=== PATIENT | male | born 1935 | race Caucasian/White ===

== ENCOUNTER 2022-08-06 18:18 | Inpatient (IN) | payer MEDICARE ==
[~2022-08-06] VITALS: Ht 170.2 cm; Wt 60.3 kg
[2022-08-06] MEDS: PSYLLIUM SEED PACKET PO SCH (19:15)
[2022-08-06 19:25] LABS: HEMATOCRIT 45.7 % (36.7-47.1); MEAN CORPUSCULAR HEMOGLOBIN 29.8 uug (23.8-33.4); MEAN CORPUSCULAR VOLUME 90.5 fL (73.0-96.2); PLATELET COUNT (AUTO) 267 K/uL (152-348)
--- NOTE | 2022-08-06 19:36 | NUR ---
Endorsed to Francheska LENTZ.
[2022-08-06 19:43] LABS: CARBON DIOXIDE 28 mmol/L (21-32); CHLORIDE 102 mmol/L (98-107); CREATININE 1.1 mg/dL (0.6-1.3); GLUCOSE 75 mg/dL (74-106); POTASSIUM 3.8 mmol/L (3.5-5.1); UREA NITROGEN, BLOOD 17 mg/dL (7-18)
[2022-08-06 19:49] LABS: ALANINE AMINOTRANSFERASE 13 U/L (16-63); ALKALINE PHOSPHATASE 91 U/L (50-136); ASPARTATE AMINOTRANSFERASE 33 U/L (15-37); BILIRUBIN,DIRECT 0.2 mg/dL (0.0-0.2); BILIRUBIN,TOTAL 0.8 mg/dL (0.2-1.0); TOTAL PROTEIN, SERUM 6.9 g/dL (6.4-8.2)
[2022-08-06 19:55] LABS: ACETAMINOPHEN < 2.0 ug/mL (10-30)
[2022-08-06 19:56] LABS: *BLOOD, URINE NEGATIVE (NEGATIVE); *CLARITY,URINE CLEAR (CLEAR); *COLOR,URINE YELLOW (YELLOW); *KETONES,URINE 2+ (NEGATIVE); LEUKOCYTE ESTERASE ,URINE NEGATIVE (NEGATIVE); NITRITE, URINE NEGATIVE (NEGATIVE); PH,URINE 5.5 (5.0-8.0); UGLUCOSE NEGATIVE (NEGATIVE)
[2022-08-06 19:58] LABS: *AMPHETAMINE, URINE NEGATIVE (NEGATIVE); *CANNABINOID, URINE NEGATIVE (NEGATIVE); *COCCAINE, URINE NEGATIVE (NEGATIVE); *PHENCYCLIDINE SCREEN,URINE NEGATIVE (NEGATIVE)
[2022-08-06 20:00] LABS: *BILIRUBIN,URIN 1+ (NEGATIVE)
[2022-08-06 20:05] LABS: ETHANOL < 3 MG/DL (0-0)
--- NOTE | 2022-08-06 20:26 | NUR ---
called pharmacy 3x, for metamucil, n/a at [facility] at this time
[2022-08-06 20:52] LABS: THYROID STIMULATING HORMONE 2.165 mIU/mL (0.358-3.740)
[2022-08-06] MEDS ORDERED: BLOOD SUGAR DIAGNOSTIC 1 EACH STRIP VI ONE (23:00)
[2022-08-06] MEDS ORDERED: MAGNESIUM HYDROXIDE 30 ML LIQUID UDC PO PRN (23:00)
[2022-08-06] MEDS ORDERED: MAG HYDROX/AL HYDROX/SIMETH 30 ML LIQUID UDC PO PRN (23:00)
[2022-08-06] MEDS ORDERED: LORAZEPAM 1 MG TABLET PO PRN (23:00)
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
[2022-08-07] MEDS: ZOLPIDEM 5 MG TABLET PO PRN ×2 (00:10→22:38)
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
--- NOTE | 2022-08-07 06:00 | NUR ---
PT SLEPT FOR APPROX 4HRS THROUGH THE NIGHT. WILL CONTINUE WITH REASSURANCE AND REALITY ORIENTATIONS.
--- NOTE | 2022-08-07 06:30 | NUR ---
PATIENT IS REFUSING TO SHOWER. HE IS ALSO REFUSING PICTURES TO HIS ABRASIONS IN BOTH LOWER ANTERIOR LEGS. HE STATED, "THAT IS NOTHING. I JUST FELT DOWN AT HOME. THEY ARE HEALED". WILL CONTINUE TO MONITOR.
[2022-08-07 07:30] VITALS: BP 164/70
[2022-08-07] MEDS: ACETAMINOPHEN 325 MG TABLET PO PRN ×2 (08:35→18:11)
[2022-08-07] MEDS ORDERED: LITHIUM CARBONATE 300 MG CAPSULE PO SCH (09:00)
--- NOTE | 2022-08-07 09:55 | NUR ---
Clinical SW Note: Pt appears disruptive and verbally abusive. Pt requires constant redirection. Pt appears hyperverbal and stating delusional thoughts that do not appear to make sense. Pt constantly walks to this SW's door and enters room. Pt screams, "Listen to me!" when SW redirects pt to go speak to her in his room. SW informed nursing.
[2022-08-07] MEDS: ESCITALOPRAM OXALATE 10 MG TABLET PO SCH (10:18)
[2022-08-07] MEDS: LITHIUM CARBONATE 150 MG CAPSULE PO SCH ×4 (10:22→21:00)
[2022-08-07] MEDS: PSYLLIUM SEED PACKET PO SCH (11:03)
--- NOTE | 2022-08-07 11:23 | NUR ---
Clinical SW Note: Pt continues with disruptive and verbally abusive behavior. Pt requires constant redirection, hyperverbal and stating delusional thoughts that do not appear to make sense. Pt continues to constantly walk into this SW's office and states, "I demand help dammit!". Pt appeared quiet when this SW asked how this SW can help the pt.
--- NOTE | 2022-08-07 14:00 | NUR ---
Patient received awake sitting in bed resting comfortably.patient is easily irritable, agitated, demanding,anxious,paranoid. Patient stated he does not need to be admitted to the hospital. Patient stated " Dr. Lopez is incompetent and inept".
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
--- NOTE | 2022-08-07 15:58 | NUR ---
ALLEN Initial Discharge Note: Pt's last residence was at home with his son located at [address] [place] [address] [place] [id number]. Pt stated he is currently homeless and living out of hotels due to moving. ALLEN spoke with crisis intervention social service assistant, Heidi [phone] who stated that pt cannot return home due to being evicted. ALLEN will continue to work with the pt, family and MD to ensure a safe and proper discharge plan for the pt.
--- NOTE | 2022-08-07 15:58 | NUR ---
Clinical SW Note: Pt continues to be argumentative, yelling and stating, "I will make trouble if someone doesn't help me right now!". Pt requires constant redirection as he appears intrusive, verbally abusive and demanding.
[2022-08-07 16:00] VITALS: BP 179/91
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
[2022-08-07 20:05] VITALS: BP 159/85
[2022-08-07] MEDS: LORAZEPAM 1 MG TABLET PO PRN (21:14)
--- NOTE | 2022-08-07 21:15 | NUR ---
RECEIVED PATIENT IN THE HALLWAY. HE IS NOTED A/O X 3. HE IS DEMANDING AND EASILY IRRITABLE. HE IS GUARDED. HE IS NOTED WITH A POOR INSIGHT AND JUDGMENT TO THE REASON FOR HIS ADMISSION TO MHU. HE DENIED SI/HI/VH/AH. HE STATED, "I SHOULD NOT BE HERE. I DON'T HAVE ANY MENTAL ISSUES". PATIENT ALSO REFUSED LITHIUM 150MG PO QHS. HE HAS INFORMED OF THE IMPORTANCE TO COMPLY WITH HIS MEDICATION REGIMENT TO IMPROVED HIS SYMPTOMS YET REFUSED. PATIENT IS ASLO NOTED HYPERSEXUAL. HE TOLD THIS POWDER CORE TESTER, "COME ON, JUST GIVE ME A KISS. WOULD YOU GO OUT ON A DATE WITH ME?" PATIENT REQUIRES REALITY ORIENTATION AND REDIRECTIONS. HE WAS GIVEN ATIVAN 1MG PO PRN FOR ANXIETY. HE IS REASSURED FOR HIS SAFETY. SAFETY AND FALL PRECAUTIONS ARE IN PLACE. WILL CONTINUE TO MONITOR. HE WAS GIVEN PO FLUIDS AND SNACKS, PT V/S ARE STABLE. WILL CONTINUE TO MONITOR.
[2022-08-08 07:30] VITALS: BP 195/91
--- NOTE | 2022-08-08 08:08 | NUR ---
Nursing- Called Dr Amandeep Benitez, informed of elevated blood pressure 195/91, waiting for order
[2022-08-08] MEDS: LITHIUM CARBONATE 150 MG CAPSULE PO SCH ×2 (09:23→20:09)
[2022-08-08] MEDS: ESCITALOPRAM OXALATE 10 MG TABLET PO SCH (09:24)
[2022-08-08] MEDS: PSYLLIUM SEED PACKET PO SCH (09:24)
[2022-08-08 10:45] VITALS: BP 190/89
[2022-08-08] MEDS: LORAZEPAM 1 MG TABLET PO PRN ×2 (10:58→20:09)
[2022-08-08] MEDS: hydrALAZINE HCL 50 MG TABLET PO PRN (10:59)
--- NOTE | 2022-08-08 12:59 | NUR ---
Gps/Engineering Consultant- Needy , gets argumentative, demanding behavior , yells for his needs, discouraged from yelling .Encouraged to attend group activity . Patient insisting the needs to talked to his Medical Doctor, patient reassured , relayed message
--- NOTE | 2022-08-08 14:22 | NUR ---
Gps/Director Of Partner Marketing B/P 170/67 HR 81 02 SAT.95%
--- NOTE | 2022-08-08 14:45 | NUR ---
Gps/Manager Test- During patient's shower, noted open wounds right gomez, as well left gomez, dry, flaky, discolored . Molding Machine Operator was informed, Wound consult was ordered. Patient hesitant in having picture taken of his shins but agreed after persuasion.
[2022-08-08 16:00] VITALS: BP 127/64
--- NOTE | 2022-08-08 16:15 | NUR ---
Gps/Employee Benefits Specialist- Patient's daughter Cristina , came in to fruit or nut picker car rodarte([employer]) . Patient ok'd to give his car rodarte to his daughter .Cristina initialed belonging list.
[2022-08-08 20:59] VITALS: BP 137/78
[2022-08-08] MEDS: ZOLPIDEM 5 MG TABLET PO PRN (21:07)
--- NOTE | 2022-08-09 01:59 | NUR ---
Received patient at the start of the shift with his feet up on the table where everyone eats. The patient was demanding and childlike. When he did not get something he wanted right away , he yelled at this race and sports book writer " Your a Bitch, you have no idea who I am ". The patient has been labile all night. He lays in his bed and yells at the top of his lungs " Nurse, nurse ". over and over. When staff shows up, the patient had no reason for yelling. Total disregard for the other patients and the unit rules. The patient denies SI, and is unable to engage in any conversation that is reality based or not delusional and accusatory. Safety Stratiges are in place. Staff is continuing to monitor the patient for further behavior escalation.
[2022-08-09 07:41] VITALS: BP 183/93
[2022-08-09] MEDS: hydrALAZINE HCL 50 MG TABLET PO PRN (08:00)
[2022-08-09] MEDS: LITHIUM CARBONATE 150 MG CAPSULE PO SCH ×2 (09:00→20:01)
[2022-08-09] MEDS: ESCITALOPRAM OXALATE 10 MG TABLET PO SCH (09:00)
--- NOTE | 2022-08-09 09:20 | NUR ---
Gps/Director Of Public Safety Patient extremely labile, yelling at the staff, calling the senior copywriter adore gaitan, " you dont know anything you dont fit to be a Nurse" patient requesting to see a Medical Doctor to attend to him not a Psychiatrist per patient, claimed he he does not need one. Claimed constipated for 5 days, patient had MOM 30 ml, this am, fluid encouraged, offered prune juice, refused. offered his am routine metamucil, refused. , patient constantly yelling demanding to see a Medical Doctor . Dr Amandeep Benitez was called(texted) awaiting response.
[2022-08-09] MEDS: PSYLLIUM SEED PACKET PO SCH ×3 (09:30→20:01)
--- NOTE | 2022-08-09 10:10 | NUR ---
Gps/Nursing - Order received from Corinne Salazar enema PRN constipation
--- NOTE | 2022-08-09 10:30 | NUR ---
Gps/China Decorator- Received orders from Dr Amandeep Benitez , medications for patient's constipation
[2022-08-09] MEDS ORDERED: FLEET ENEMA 133 ML BOTTLE RC PRN ×2 (10:45)
[2022-08-09] MEDS ORDERED: BISACODYL 10 MG SUPP.RECT RC PRN (10:45)
[2022-08-09] MEDS ORDERED: LACTULOSE 20 G/30 ML LIQUID UDC PO PRN (10:45)
--- NOTE | 2022-08-09 10:59 | NUR ---
Gps/Yarn Texturing Machine Operator- Came out of his room ,to the Nurses station after yelling so long, demanding his needs be taken care right away . Informed patient orders was entered, waiting fro pharmacy to acknowledge meds. Remains irritable , loud, calling staff names , difficulty redirecting patient
--- NOTE | 2022-08-09 14:08 | NUR ---
Gps/Nursing - Patient constantly yelling "Nurse, Nurse for his simple needs , encouraged to come out to the Nurses station, to tell staff his needs, patient claimed he cants walk r/t back pain, wants staff to cover him with couple of blankets , claimed he is constantly cold , temp. adjusted
--- NOTE | 2022-08-09 14:55 | NUR ---
Gps/Filling Hauler Weaving- Patient had adequate results from the fleets enema, given while he was in bed. Also noted patient had a mod soft bm. in the bathroom w/c patient didnt flush , patient wants to be assisted in cleaning him and doing his hygiene, encouraged to initiate helping himself. Patient wnats to be taking care of including tucking himp in bed as well ahelping him pulll up his blanker.Poor initiations. Remains to call staff names when neds not met right away.
[2022-08-09 16:05] VITALS: BP 154/74
[2022-08-09] MEDS: ACETAMINOPHEN 325 MG TABLET PO PRN (18:02)
[2022-08-09] MEDS: LORAZEPAM 1 MG TABLET PO PRN (20:01)
[2022-08-09 20:21] VITALS: BP 142/69
[2022-08-09] MEDS: ZOLPIDEM 5 MG TABLET PO PRN (22:16)
--- NOTE | 2022-08-10 04:32 | NUR ---
Patient was demanding, impatient, needy and rude. Again ,yelling out for the nurse multiple times during the shift. The patient has no regard for the other sleeping patients and despite attempts to educate and inform him of the unit expectations, no positive response received. The patient continues to complain about the staff, and is unable to be satisfied by anything r/t care that is or has been done. The patient shows signs of forgetfulness and appears to be hard of hearing. Safety stratiges remain in place and further monitoring for behavior escalation is ongoing.
[2022-08-10 08:18] VITALS: BP 189/81
[2022-08-10] MEDS: PSYLLIUM SEED PACKET PO SCH ×2 (08:31→20:03)
[2022-08-10] MEDS: ESCITALOPRAM OXALATE 10 MG TABLET PO SCH (08:31)
[2022-08-10] MEDS: LITHIUM CARBONATE 150 MG CAPSULE PO SCH ×2 (08:31→20:03)
--- NOTE | 2022-08-10 13:45 | NUR ---
Gps/Cotton Seed Culler- KWIGILLINGOK, words repeated so many times before he can grasp conversations /instructions. Encouraged to assist self with his ADLs, patient portrayed unable to help self including fixing his blankets. Patient's daughter Cristina called checking on his father (patient) claimed she is very happy that the hold was extended , does not want to talk to him at this time .. Cristina (Daughter ) [phone] , claimed she can be reach with this number anytime.
[2022-08-10 16:13] VITALS: BP 136/89
[2022-08-10 19:49] VITALS: BP 132/82
[2022-08-10] MEDS: LORAZEPAM 1 MG TABLET PO PRN (19:49)
[2022-08-10] MEDS: ZOLPIDEM 5 MG TABLET PO PRN (22:23)
[2022-08-10] MEDS: ACETAMINOPHEN 325 MG TABLET PO PRN (22:23)
--- NOTE | 2022-08-11 03:03 | NUR ---
At start of the shift , during the report, this patient was standing in the doorway of the nursing station, yelling and demanding " I want my Metamucil right now ! Come on, why are you torturing me . My rectum needs it ! " The patient continues to demonstrate poor impulse control, poor situational awareness , anger issues and self centered actions. He then yelled from his bed " Nurse, Nurse" ..non stop, in a frantic tone until somebody showed up.Upon staffs arrival, he said " Scratch my foot, then move the pillow under my head and cover me with my blankets." This patient is labile and he becomes verbally abusive, gritting his teeth and displaying clear signs of aggression. Safety Stratiges in place for the staff, the patient and the other people on the unit. Continuing to set limits, and to deescalate this patient as needed.
[2022-08-11 07:49] VITALS: BP 184/84
[2022-08-11] MEDS: hydrALAZINE HCL 50 MG TABLET PO PRN ×2 (07:51→20:36)
--- NOTE | 2022-08-11 08:32 | NUR ---
Clinical SW Note: Pt appears yelling from his room. Pt is stating statements that do not appear to make sense. Pt appears argumentative and verbally abusive. Pt constantly yelling and requires redirection. Pt rushes into this SW's office and requires to be constantly told to speak outside of the office.
[2022-08-11] MEDS: ESCITALOPRAM OXALATE 10 MG TABLET PO SCH (08:38)
[2022-08-11] MEDS: LORAZEPAM 1 MG TABLET PO PRN ×2 (08:38→17:17)
[2022-08-11] MEDS: LITHIUM CARBONATE 300 MG CAPSULE PO SCH ×2 (08:39→20:36)
[2022-08-11] MEDS: PSYLLIUM SEED PACKET PO SCH ×2 (08:39→20:36)
[2022-08-11] MEDS ORDERED: LITHIUM CARBONATE 150 MG CAPSULE PO SCH (09:00)
--- NOTE | 2022-08-11 10:34 | NUR ---
ALLEN Family Contact: ALLEN spoke with pt's daughter, Jessy ([phone]) regarding pt's discharge plan to a residential facility. Per Jessy, she asked for help to make sure pt can go to a facility because pt does not have a home to discharge to and he cannot take care of himself. ALLEN informed Jessy that the psychiatrist and this SW are working on a residential facility right now and will confirm with Jessy once we have a confirmed location in place. ALLEN informed Jessy that the pt is as also agreeable to a facility and asked this tech writer and Dr. Lopez for help. Jessy was grateful for the update.
--- NOTE | 2022-08-11 11:08 | NUR ---
ALLEN SNF Referral: ALLEN faxed patient's referral packet including: History and Physical, Consultation, Progress Notes, Medication List and Labs to the following facilities for review and possible care home placement: [facility] [address] [place] [id number] ([phone]). ALLEN spoke with Veronica parker and [facility]. ALLEN informed pt and his daughter, Jessy whoa re aware and agreeable with the facility location.
--- NOTE | 2022-08-11 11:24 | NUR ---
Clinical SW Note: Pt constantly rushes into this SW's office yelling and stating delusional thoughts. Pt does not appear to follow directions well when SW states to speak outside of her office. Pt appears argumentative, intrusive, and stating verbal threats such as, "You have five seconds to help me or else!".
--- NOTE | 2022-08-11 12:40 | NUR ---
WOUND CARE CONSULT: PT ANGRY AND IRRITABLE, RAISING HIS VOICE AT TIMES CONDESCENDINGLY. PT PRESENTS WITH RT LOWER LEG CRUSTED LESION/WOUND. DR LIM CALLED FOR DPM CONSULT. IN AGREEMENT WITH PLAN OF CARE.
--- NOTE | 2022-08-11 13:53 | NUR ---
GPS: Nursing Notes: Destructive Behavior To Self: Patient is awake and responding to his name, poor impulse control, poor anger management, labile, unpredictable behavior, overly demanding, verbal abusive and threatening staff, attention seeking behavior,constantly calling for a nurse, stating "Nurse can you fix my pillow..", self care, ambulatory, but needy, stated "I need a sitter next to me..", unable to formulate a viable plan for self care, grandiose behavior, stated "I am a doctor... 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
--- NOTE | 2022-08-11 14:06 | NUR ---
ALLEN Discharge update: ALLEN spoke with [facility] at [facility] who stated they cannot accept the pt due to hx of suicidal ideation. [facility] faxed clinicals to [facility] in [place] for review. Pt and pt's daughter, Jessy ([phone]) and psychiatrist, Dr. Lopez are aware.
[2022-08-11] MEDS: ACETAMINOPHEN 325 MG TABLET PO PRN (17:17)
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
[2022-08-11] MEDS: NEOMY/BACITRAC/POLYMI OINT 28.35 GM TUBE TOP SCH (17:18)
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
[2022-08-11] MEDS ORDERED: LORAZEPAM 2 MG/1 ML VIAL IM ONE (17:30)
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
[2022-08-11 20:08] VITALS: BP 163/65
--- NOTE | 2022-08-11 20:45 | NUR ---
RECEIVED PATIENT IN HIS ROOM. HE IS NOTED A/O X 3. HE IS INTRUSIVE, HYPERVERBAL, GRANDIOSE, HYPERSEXUAL AND ATTENTION SEEKER. PATIENT NEEDS REDIRECTIONS. HIS B/P WAS ELEVATED SBP 163MMHG. APRESOLINE 50MG PO PRN WAS GIVEN. PATIENT IN NO DISTRESS. HE WAS GIVEN PO FLUIDS ANS SNACKS. HE IS COMPLIANT WITH HIS MEDICATION REGIMENT, HE IS REASSURED FOR HIS SAFETY, SAFETY AND FALL PRECAUTIONS ARE IN PLACE. WILL CONTINUE TO MONITOR.
[2022-08-11 22:00] VITALS: BP 146/64
--- NOTE | 2022-08-11 22:00 | NUR ---
BP IS NOW 146/64. PATIENT RESTING IN HIS BED. WILL CONTINUE TO MONITOR.
[2022-08-12 07:26] VITALS: BP 171/75
[2022-08-12] MEDS: LORAZEPAM 1 MG TABLET PO PRN ×2 (07:48→20:06)
[2022-08-12] MEDS: ACETAMINOPHEN 325 MG TABLET PO PRN (07:49)
[2022-08-12] MEDS: hydrALAZINE HCL 50 MG TABLET PO PRN (07:49)
[2022-08-12] MEDS: ESCITALOPRAM OXALATE 10 MG TABLET PO SCH (08:03)
[2022-08-12] MEDS: PSYLLIUM SEED PACKET PO SCH ×2 (08:03→20:15)
[2022-08-12] MEDS: LITHIUM CARBONATE 300 MG CAPSULE PO SCH ×2 (08:03→20:15)
[2022-08-12] MEDS: NEOMY/BACITRAC/POLYMI OINT 28.35 GM TUBE TOP SCH (08:04)
--- NOTE | 2022-08-12 12:00 | NUR ---
Clinical SW Note: Pt does not appear to follow directions well. Pt remains argumentative, intrusive and verbally abusive.
[2022-08-12] MEDS: MIRALAX 17 GM POWD.PACK PO SCH (15:01)
[2022-08-12] MEDS: AMLODIPINE 5 MG TABLET PO SCH (15:01)
[2022-08-12 15:56] VITALS: BP 150/65
[2022-08-12] MEDS ORDERED: MAGNESIUM HYDROXIDE 30 ML LIQUID UDC PO PRN (16:45)
[2022-08-12 20:54] VITALS: BP 158/79
[2022-08-12] MEDS: ZOLPIDEM 5 MG TABLET PO PRN (21:06)
--- NOTE | 2022-08-12 21:30 | NUR ---
RECEIVED PATIENT IN HIS ROOM SITTING IN HIS BED. HE IS NOTED A/O X 3. HE IS VERBALLY ABUSIVE, HYPERVERBAL, GRANDIOSE, HYPERSEXUAL, LABILE AND ATTENTION SEEKER. HE HAS POOR INSIGHT AND POOR JUDGMENT TO THE REASON FOR HIS ADMISSION TO MHU. PATIENT IN NO DISTRESS, V/S STABLE. HE WAS GIVEN PO FLUIDS AND SNACKS. HE IS COMPLIANT WITH HIS MEDICATION REGIMENT, HE IS REASSURED FOR HIS SAFETY, SAFETY AND FALL PRECAUTIONS ARE IN PLACE. WILL CONTINUE TO MONITOR.
[2022-08-13] MEDS: ACETAMINOPHEN 325 MG TABLET PO PRN (03:23)
[2022-08-13 07:30] VITALS: BP 181/74
--- NOTE | 2022-08-13 08:18 | NUR ---
Clinical SW Note: Pt does not appear to follow directions well. Pt remains argumentative, intrusive and verbally abusive with staff.
[2022-08-13] MEDS: ESCITALOPRAM OXALATE 10 MG TABLET PO SCH (08:27)
[2022-08-13] MEDS: AMLODIPINE 5 MG TABLET PO SCH ×2 (08:30→20:47)
[2022-08-13] MEDS: MIRALAX 17 GM POWD.PACK PO SCH (08:34)
[2022-08-13] MEDS: PSYLLIUM SEED PACKET PO SCH ×2 (08:34→20:48)
[2022-08-13] MEDS: LITHIUM CARBONATE 300 MG CAPSULE PO SCH ×2 (08:34→20:47)
[2022-08-13] MEDS: NEOMY/BACITRAC/POLYMI OINT 28.35 GM TUBE TOP SCH (08:36)
--- NOTE | 2022-08-13 08:56 | NUR ---
Received patient awake in his room. A/O X 3 to person, place, environment. Patient is demanding, needy, dramatic, loud, anxious and agitated at times. Patient presents grandiose delusional. Patient states "You're a dumbed bitch. You're not even a doctor like me. I'm a surgeon". "All staff here are stupid, including doctors". Patient has poor impulse control and yells at staff to be served the way he thinks he deserves. Reality orientation provided. Fall and safety precautions implemented.
[2022-08-13 09:00] VITALS: BP 145/72
[2022-08-13] MEDS: hydrALAZINE HCL 50 MG TABLET PO PRN (15:33)
--- NOTE | 2022-08-13 15:36 | NUR ---
Patient blood pressure is 166/69, pulse 61, Hydralazine 50 mg PRN given at 15:33, will be monitored for effectiveness.
[2022-08-13 16:00] VITALS: BP 166/69
[2022-08-13] MEDS: ZOLPIDEM 5 MG TABLET PO PRN (21:11)
[2022-08-13 21:15] VITALS: BP 120/67
--- NOTE | 2022-08-14 04:09 | NUR ---
GPS NOTES: Patient is heard to be yelling at all times when needing attention, he is attended to in timely manner, however he is forgetful and accusatory with the staff. He is needy, demanding and attention seeker. Patient needs setting limits for the behavior. He is manipulative and paranoid. He is med compliant. Ambien given. Effective. He slept uninterrupted during shift. No distress. Frequent monitoring in placed. Safety precaution at all times.
[2022-08-14 07:30] VITALS: BP 164/71
[2022-08-14] MEDS: PSYLLIUM SEED PACKET PO SCH ×3 (09:00→21:13)
[2022-08-14] MEDS: MIRALAX 17 GM POWD.PACK PO SCH ×2 (09:00→09:18)
[2022-08-14] MEDS: LITHIUM CARBONATE 300 MG CAPSULE PO SCH ×2 (09:16→21:13)
[2022-08-14] MEDS: ESCITALOPRAM OXALATE 10 MG TABLET PO SCH (09:16)
[2022-08-14] MEDS: AMLODIPINE 5 MG TABLET PO SCH ×2 (09:17→21:12)
[2022-08-14] MEDS: NEOMY/BACITRAC/POLYMI OINT 28.35 GM TUBE TOP SCH (09:18)
--- NOTE | 2022-08-14 14:26 | NUR ---
ALLEN Family Contact: ALLEN spoke with pt's daughter, Jessy ([phone]) regarding pt's discharge plan to a senior living facility. Jessy is aware that the hospital cannot force to the pt to discharge to a senior living facility if the pt is alert and oriented x4 and has a safe discharge plan. Jessy is aware and agreeable that pt may discharge to a hotel with continuation of care follow-up appointments arranged by this policy writer sales upon discharge. ALLEN informed Jessy that psychiatrist, Dr. Lopez has approved pt's initial plan of discharging to a hotel as pt is self-responsible, not a danger to others or to himself if pt refuses a SNF at time of discharge. Pt and Jessy is aware that pt is accepted to [facility] upon discharge.
--- NOTE | 2022-08-14 15:15 | NUR ---
Received patient awake in his room. Patient is ambulatory A/O X 3 . Patient is demanding, needy, anxious and agitated at times. Patient presents grandiose delusional. Patient has poor impulse control and yells at staff to come to his room every time he needs to use the phone or wants water. Reality orientation provided. Fall and safety precautions implemented.Continue to monitor for safety, continue with treatment plan .
--- NOTE | 2022-08-14 15:22 | NUR ---
Patient had court hearing today, and building equipment inspector Fermin Steele gave 14 DAY HOLD probable cause for GD only.
[2022-08-14 16:00] VITALS: BP 152/66
[2022-08-14 20:13] VITALS: BP 158/78
[2022-08-14] MEDS: LORAZEPAM 1 MG TABLET PO PRN (21:11)
[2022-08-14] MEDS: ZOLPIDEM 5 MG TABLET PO PRN (21:13)
--- NOTE | 2022-08-15 04:51 | NUR ---
Received patient at the start of the shift, again yelling " Nurse,Nurse bring me the phone. " Total lack of awareness or social norms. The patients is labile and snaps at staff easily. During the night, the patient came to the nurses station and was making inappropriate comments to this newspaper writer. The patient seems more confused and forgetful at night. Safety Stratiges are in place and on going monitoring for behavior escalation and disruptive, argumentative displays of poor impulse control.
[2022-08-15 07:30] VITALS: BP 159/62
[2022-08-15 08:05] LABS: CREATININE 1.1 mg/dL (0.6-1.3); MAGNESIUM 2.4 mg/dL (1.8-2.4); POTASSIUM 4.1 mmol/L (3.5-5.1)
[2022-08-15] MEDS: LITHIUM CARBONATE 300 MG CAPSULE PO SCH ×2 (08:40→20:43)
[2022-08-15] MEDS: ESCITALOPRAM OXALATE 10 MG TABLET PO SCH (08:40)
[2022-08-15] MEDS: AMLODIPINE 5 MG TABLET PO SCH ×2 (08:41→20:44)
[2022-08-15] MEDS: MIRALAX 17 GM POWD.PACK PO SCH (08:42)
[2022-08-15] MEDS: PSYLLIUM SEED PACKET PO SCH ×2 (08:42→20:44)
[2022-08-15] MEDS: NEOMY/BACITRAC/POLYMI OINT 28.35 GM TUBE TOP SCH (08:42)
--- NOTE | 2022-08-15 09:25 | NUR ---
SW Family Contact: SW spoke with pt's daughter, Jessy ([phone]) regarding pt's discharge plan next week and was not able to be connected.
--- NOTE | 2022-08-15 15:51 | NUR ---
Patient is confused and disoriented at times, demanding, needy, verbally abusive, frequent outbursts, compliant with medications. Patient requires minimal assistance with ADL, continent, ambulates with assistance. Active listening provided. Fall and safety precautions implemented.
[2022-08-15 16:00] VITALS: BP 172/54
[2022-08-15 20:08] VITALS: BP 151/70
[2022-08-15] MEDS: OLANZAPINE 2.5 MG TABLET PO SCH (20:44)
[2022-08-15] MEDS: ZOLPIDEM 5 MG TABLET PO PRN (20:44)
--- NOTE | 2022-08-16 04:29 | NUR ---
GPS NOTES: Received patient in his room, screaming for attention. He is easily angered and yells at staff when his way of doing things are not followed. Patient verbally abusive by calling staff derogatory names such as "BITCH, STUPID". Patient needs setting limit w/ the behavior, he listens at times but forgetful and will yell constantly to make simple demands. His needs were attended to but still accusatory of staff. He denies SI/AH/VH. He is med compliant. Ambien given. Insomnia corrected. He slept mostly during shift. No distress noted. All safety strategies in placed.
[2022-08-16 07:55] VITALS: BP 144/62
[2022-08-16] MEDS: LITHIUM CARBONATE 300 MG CAPSULE PO SCH ×2 (08:25→20:36)
[2022-08-16] MEDS: AMLODIPINE 5 MG TABLET PO SCH ×2 (08:26→20:36)
[2022-08-16] MEDS: ESCITALOPRAM OXALATE 10 MG TABLET PO SCH (08:26)
[2022-08-16] MEDS: PSYLLIUM SEED PACKET PO SCH ×2 (08:28→20:37)
[2022-08-16] MEDS: MIRALAX 17 GM POWD.PACK PO SCH (08:29)
[2022-08-16] MEDS: NEOMY/BACITRAC/POLYMI OINT 28.35 GM TUBE TOP SCH (08:29)
[2022-08-16 16:18] VITALS: BP 148/67
--- NOTE | 2022-08-16 16:50 | NUR ---
Received pt awake in room yelling for nurse and demanding attention. Pt is A/O X3.Pt is forgetful at times .Pt is verbally abusive by calling staff derogatory names such as "DUMB BITCH'. Pt has poor impulse Control,irritable and gets easily agitated Pt denies SI/VH/AH.continue to Monitor for safety, continue withe treatment care.
[2022-08-16 20:00] VITALS: BP 129/52
[2022-08-16] MEDS: OLANZAPINE 2.5 MG TABLET PO SCH (20:36)
[2022-08-16] MEDS: ZOLPIDEM 5 MG TABLET PO PRN (20:37)
--- NOTE | 2022-08-17 06:39 | NUR ---
GPS NOTES: No noted behavioral improvement noted, continues to have yelling episodes, verbally abusive and no regard for peoples feelings. Ambien given. Effective. All safety strategies in placed.
[2022-08-17 08:12] VITALS: BP 145/62
[2022-08-17] MEDS: ESCITALOPRAM OXALATE 10 MG TABLET PO SCH (08:23)
[2022-08-17] MEDS: LITHIUM CARBONATE 300 MG CAPSULE PO SCH ×2 (08:23→20:46)
[2022-08-17] MEDS: MIRALAX 17 GM POWD.PACK PO SCH (08:24)
[2022-08-17] MEDS: AMLODIPINE 5 MG TABLET PO SCH ×2 (08:24→20:45)
[2022-08-17] MEDS: PSYLLIUM SEED PACKET PO SCH ×2 (08:25→20:46)
[2022-08-17] MEDS: NEOMY/BACITRAC/POLYMI OINT 28.35 GM TUBE TOP SCH (08:28)
--- NOTE | 2022-08-17 15:47 | NUR ---
patient is AAO x3,Patient is overly disruptive, poor anger management, threatening staff, yelling out when he needs any help. poor insight and impair impulse control .compliant with medication.
[2022-08-17 16:10] VITALS: BP 145/55
[2022-08-17 20:04] VITALS: BP 132/51
[2022-08-17] MEDS: LORAZEPAM 1 MG TABLET PO PRN (20:45)
[2022-08-17] MEDS: OLANZAPINE 2.5 MG TABLET PO SCH ×2 (20:45→22:01)
[2022-08-17] MEDS: ACETAMINOPHEN 325 MG TABLET PO PRN (20:45)
[2022-08-17] MEDS: ZOLPIDEM 5 MG TABLET PO PRN (22:01)
[2022-08-18 07:48] VITALS: BP 96/60
[2022-08-18] MEDS: LITHIUM CARBONATE 300 MG CAPSULE PO SCH ×2 (08:35→20:12)
[2022-08-18] MEDS: PSYLLIUM SEED PACKET PO SCH ×2 (08:35→20:12)
[2022-08-18] MEDS: ESCITALOPRAM OXALATE 10 MG TABLET PO SCH (08:35)
[2022-08-18] MEDS: MIRALAX 17 GM POWD.PACK PO SCH (08:36)
[2022-08-18] MEDS: AMLODIPINE 5 MG TABLET PO SCH ×2 (08:36→20:54)
[2022-08-18] MEDS: NEOMY/BACITRAC/POLYMI OINT 28.35 GM TUBE TOP SCH (08:37)
[2022-08-18] MEDS: LORAZEPAM 1 MG TABLET PO PRN ×2 (10:31→20:12)
[2022-08-18] MEDS: ACETAMINOPHEN 325 MG TABLET PO PRN ×2 (10:31→20:12)
--- NOTE | 2022-08-18 15:01 | NUR ---
ALLEN Family Contact: ALLEN spoke with pt's daughter, Jessy ([phone]) regarding pt's discharge plan this week. ALLEN informed Jessy that pt continues to refuse a correction facility upon discharge which Jessy stated she's aware of. Jessy verbalized her wishes of pt's 5250 hold extending to 30-day hold. ALLEN informed Jessy that per Dr. Lopez, pt does not meet criteria for 30-day hold which Jessy stated she understands. Jessy is aware that pt will either discharge to his accepting facility called [facility] ([phone]) in [place] or discharge to a hotel per pt's request upon discharge. ALLNE will continue to update Jessy with pt's discharge plan. ALLEN informed Jessy that this jingle writer will continue to encourage pt to discharge to [facility] and provide continuation of care resources for the pt. However, Jessy is aware of pt's rights and understands that [facility] cannot force the pt.
[2022-08-18 16:37] VITALS: BP 135/49
[2022-08-18 19:49] VITALS: BP 127/55
[2022-08-18] MEDS: OLANZAPINE 2.5 MG TABLET PO SCH (20:12)
--- NOTE | 2022-08-19 08:00 | NUR ---
Report received from outgoing nurse. Patient AAOX2 and confused at times. Vital signs stable. No signs of shortness of breath noted. Patient sat on bed eating breakfast and yelling out words. Pt was transfer to chair due to his complaint of bad back. Pt stated "that feels better. Patient ate 50% of his meals. Meds given by mouth. No acute distress noted.
[2022-08-19 08:04] VITALS: BP 140/68
[2022-08-19] MEDS: ESCITALOPRAM OXALATE 10 MG TABLET PO SCH (08:43)
[2022-08-19] MEDS: LITHIUM CARBONATE 300 MG CAPSULE PO SCH ×2 (08:43→20:03)
[2022-08-19] MEDS: MIRALAX 17 GM POWD.PACK PO SCH (08:43)
[2022-08-19] MEDS: AMLODIPINE 5 MG TABLET PO SCH ×2 (08:44→20:03)
[2022-08-19] MEDS: PSYLLIUM SEED PACKET PO SCH ×2 (08:45→20:04)
[2022-08-19] MEDS: NEOMY/BACITRAC/POLYMI OINT 28.35 GM TUBE TOP SCH (08:54)
[2022-08-19 16:03] VITALS: BP 164/65
[2022-08-19] MEDS: LORAZEPAM 1 MG TABLET PO PRN (20:03)
[2022-08-19] MEDS: OLANZAPINE 2.5 MG TABLET PO SCH (20:03)
[2022-08-19] MEDS: ACETAMINOPHEN 325 MG TABLET PO PRN (20:03)
--- NOTE | 2022-08-20 03:10 | NUR ---
Pt can be labile at times and has trouble being redirected and educated on POC. Pt is NATIVE, and get's easily confused and irritable. With repeated effort and reassurance, pt can be compliant with care. Pt can be grandiose, demanding, and manipulative. Setting strict boundaries q shift is mandatory. Pt has no-regard towards other patients nor staff. Pt is child-like in behavior throwing tantrums when his unnecessary needs aren't met. Pt has poor memory and struggles to verbalize what is on his mind. Contracted for safety.
[2022-08-20 07:44] VITALS: BP 146/82
[2022-08-20] MEDS: ESCITALOPRAM OXALATE 10 MG TABLET PO SCH (09:07)
[2022-08-20] MEDS: LITHIUM CARBONATE 300 MG CAPSULE PO SCH ×2 (09:07→20:11)
[2022-08-20] MEDS: AMLODIPINE 5 MG TABLET PO SCH ×2 (09:08→20:16)
[2022-08-20] MEDS: MIRALAX 17 GM POWD.PACK PO SCH (09:08)
[2022-08-20] MEDS: PSYLLIUM SEED PACKET PO SCH ×2 (09:09→20:10)
[2022-08-20] MEDS: NEOMY/BACITRAC/POLYMI OINT 28.35 GM TUBE TOP SCH (09:25)
[2022-08-20 15:08] VITALS: BP 129/60
--- NOTE | 2022-08-20 15:58 | NUR ---
Received pt awake in room awake,Pt is demanding, labile, isolative . Pt is A/O X3.Pt is forgetful at times . Pt has poor impulse Control,irritable and gets easily agitated Pt denies SI/VH/AH.continue to Monitor for safety, continue withe treatment care.
[2022-08-20] MEDS: ZOLPIDEM 5 MG TABLET PO PRN (20:11)
[2022-08-20] MEDS: OLANZAPINE 2.5 MG TABLET PO SCH (20:11)
[2022-08-20 20:49] VITALS: BP 120/54
--- NOTE | 2022-08-21 04:04 | NUR ---
GPS NOTES: Patient isolative in his room, A&0x2. Behavior is better this shift, no yelling episodes noted. His mood is to be more pleasant and appropriate. Denies SI/VH/AH. Ambien administered. Effective. He slept well this shift, no indications of distress. All safety measures implemented.
[2022-08-21 07:30] VITALS: BP 142/60
[2022-08-21] MEDS: LITHIUM CARBONATE 300 MG CAPSULE PO SCH ×2 (08:37→20:43)
[2022-08-21] MEDS: ESCITALOPRAM OXALATE 10 MG TABLET PO SCH (08:38)
[2022-08-21] MEDS: AMLODIPINE 5 MG TABLET PO SCH ×2 (08:39→20:43)
[2022-08-21] MEDS: MIRALAX 17 GM POWD.PACK PO SCH (08:39)
[2022-08-21] MEDS: PSYLLIUM SEED PACKET PO SCH ×2 (08:40→20:43)
[2022-08-21] MEDS: NEOMY/BACITRAC/POLYMI OINT 28.35 GM TUBE TOP SCH (08:43)
--- NOTE | 2022-08-21 15:00 | NUR ---
Received pt awake,labile,easily irritable.Pt is A/O X2. Pt has child like behavior throwing tantrums when he dos not get things his way.Pt is ambulatory but demands a wheelchair calming he can not walk and yelling for staff to go to his room when he needs something. Continue to monitor for safety, continue with treatment plan.
[2022-08-21 16:00] VITALS: BP 123/57
[2022-08-21 20:36] VITALS: BP 141/56
[2022-08-21] MEDS: OLANZAPINE 2.5 MG TABLET PO SCH (20:43)
[2022-08-21] MEDS: ZOLPIDEM 5 MG TABLET PO PRN (21:18)
--- NOTE | 2022-08-21 21:30 | NUR ---
RECEIVED PATIENT IN HIS ROOM IN BED. HE IS NOTED AWAKE A/OX3. HE IS FORGETFUL AT TIMES. HE CONTINUE EASILY IRRITABLE WHEN HE DOES NOT GET HIS WAY. HE IS GRANDIOSE AND HYPERSEXUAL. PATIENT REQUIRES CONSTANT REDIRECTIONS AND REASSURANCE. HE IS VERBALLY ABUSE TO STAFF. POOR INSIGHT NOTED TO THE REASON FOR HIS ADMISSION TO [facility]. HE DENIED SI/HI/AH/VH. HE IS REASSURED FOR HIS SAFETY. SAFETY AND FALL PRECAUTIONS ARE IN PLACE. ALL HIS NEEDS ARE MET. HIS V/S ARE STABLE. HE WAS GIVEN PO FLUIDS AND SNACKS. PATIENT AWARE OF HIS DISCHARGED TOMORROW MORNING. WILL CONTINUE TO MONITOR,
[2022-08-22 07:30] VITALS: BP 154/66
[2022-08-22] MEDS: LITHIUM CARBONATE 300 MG CAPSULE PO SCH (08:43)
[2022-08-22] MEDS: ESCITALOPRAM OXALATE 10 MG TABLET PO SCH (08:43)
[2022-08-22 08:44] VITALS: BP 154/66
[2022-08-22] MEDS: AMLODIPINE 5 MG TABLET PO SCH (08:44)
[2022-08-22] MEDS: PSYLLIUM SEED PACKET PO SCH (08:49)
[2022-08-22] MEDS: MIRALAX 17 GM POWD.PACK PO SCH (08:49)
[2022-08-22] MEDS: NEOMY/BACITRAC/POLYMI OINT 28.35 GM TUBE TOP SCH (08:50)
--- NOTE | 2022-08-22 11:36 | NUR ---
Received orders to discharge this patient to [facility] located at [address] [place] [address] via [facility] at 11AM. Patient is agreeable with discharge plans, but refused to sign all discharge documentation. All belongings, valuables were returned to patient. Patient denies SI/HI AH/VH, SOB, pain or any discomfort. Patient left the unit at 11:30AM. Emotional support provided. Fall and safety precautions implemented.
== END 2022-08-22 11:30 | DRG 885 ==
LOC: ER 18:18 → GPS 21:00
PROVIDERS: ADMIT Psychiatry & Neurology Psychiatry; ATTEND Nurse Practitioner Acute Care
DX: F39 Unspecified mood [affective] disorder (principal); R45.851 Suicidal ideations; F03.93 Unspecified dementia, unspecified severity, with mood disturbance; F03.92 Unspecified dementia, unspecified severity, with psychotic disturbance; I10 Essential (primary) hypertension; G89.29 Other chronic pain; Z59.00 Homelessness unspecified; Z88.0 Allergy status to penicillin; Z88.2 Allergy status to sulfonamides; K59.00 Constipation, unspecified; Z20.822 Contact with and (suspected) exposure to COVID-19; Z73.6 Limitation of activities due to disability; F31.60 Bipolar disorder, current episode mixed, unspecified; S81.812A Laceration without foreign body, left lower leg, initial encounter; S81.811A Laceration without foreign body, right lower leg, initial encounter; X58.XXXA Exposure to other specified factors, initial encounter; Y93.9 Activity, unspecified; Y92.009 Unspecified place in unspecified non-institutional (private) residence as the place of occurrence of the external cause
CPT/HCPCS: 36415; 70030-TC; 83735; 84443; 85025; 93005; A4663; G0480; J2060